=== PATIENT | female | born 1990 | race Caucasian/White ===

== ENCOUNTER → 2017-08-12 | Outpatient (CLI) | payer OTHER ==
[~2017-08-12] MED LIST: AMOXICILLIN500 MG PO; ANAPROX DS550 MG PO; AUGMENTIN 875 M1 TAB PO; CEFTRIAXONE2 G1 IV; CIPRODEX 0.3%-7.5 ML OT; DOXYCYCLINE HY100 M3 PO; HYDROCODONE BIT1 T11 PO; LOMOTIL 0.025 M1 TA1 PO; MACROBID100 M1 PO; MEDROL DOSEPAK4 MG PO; MOTRIN800 MG PO; PYRIDIUM200 M1 PO; TRAMADOL HCL50 MG PO; ZITHROMAX Z PA250 MG PO; ZOFRAN ODT4 MG SL
[2017-08-12 15:34] LABS: BASO % 0.7 % (0.0-1.0); EOS # 0.1 10*3/uL (0.0-0.4); EOS % 1.5 % (1.0-4.0); HEMATOCRIT 33.8 % (37.0-47.0); HEMOGLOBIN 11.3 g/dl (12.0-16.0); LYMPH # 2.1 10*3/uL (1.3-4.4); LYMPH % 35.3 % (27.0-41.0); MEAN CELL VOLUME 89.7 fl (81.0-99.0); MEAN CORPUSCULAR HGB CONC 33.4 g/dl (33.0-37.0); MEAN PLATELET VOLUME 11.5 fl (9.6-12.3); MONO # 0.4 10*3/uL (0.1-1.0); NEUT # 3.3 10*3/uL (2.3-7.9); NEUT % 55.3 % (47.0-73.0); PLATELET COUNT AUTOMATED 225 10*3/uL (130-400); RED BLOOD COUNT 3.77 10*6/uL (4.10-5.10); RED CELL DISTRI WIDTH 13.1 % (0-14.5)
[2017-08-12 16:02] LABS: ALBUMIN 3.8 gm/dl (3.1-4.5); ALKALINE PHOSPHATASE 62 U/L (45-117); BUN 11 mg/dl (7-24); CHLORIDE 105 mmol/L (98-107); CREATININE 0.78 mg/dL (0.55-1.02); POTASSIUM 3.6 mmol/L (3.5-5.1); SGOT/AST 11 IU/L (3-35); SGPT/ALT 16 U/L (12-78); SODIUM 137 mmol/L (136-145); TOTAL PROTEIN 7.3 gm/dL (6.4-8.2)
== END | disposition home or self-care (01) ==
LOC: LAB 15:14
PROVIDERS: Internal Medicine
DX: G25.81 Restless legs syndrome (principal)

== ENCOUNTER 2018-12-21 15:02 | Emergency (ER) | payer SELFPAY ==
[2018-12-21 15:05] VITALS: BP 132/65
== END 2018-12-21 17:10 | disposition home or self-care (01) ==
LOC: ED 15:02
DX: S92.354A Nondisplaced fracture of fifth metatarsal bone, right foot, initial encounter for closed fracture (principal); X58.XXXA Exposure to other specified factors, initial encounter; Y93.89 Activity, other specified; Y92.89 Other specified places as the place of occurrence of the external cause; Y99.8 Other external cause status

== ENCOUNTER → 2019-02-09 | Outpatient (CLI) | payer SELFPAY | END | disposition home or self-care (01) | LOC: ORTHO 01:42 | DX: S92.351D Displaced fracture of fifth metatarsal bone, right foot, subsequent encounter for fracture with routine healing (principal); X58.XXXD Exposure to other specified factors, subsequent encounter ==

== ENCOUNTER → 2019-04-08 | Outpatient (CLI) | payer SELFPAY | END | disposition home or self-care (01) | LOC: ORTHO 00:41 | DX: S92.351D Displaced fracture of fifth metatarsal bone, right foot, subsequent encounter for fracture with routine healing (principal); X58.XXXD Exposure to other specified factors, subsequent encounter ==

== ENCOUNTER → 2019-05-20 | Outpatient (CLI) | payer SELFPAY | END | disposition home or self-care (01) | LOC: ORTHO 00:17 | DX: S92.351D Displaced fracture of fifth metatarsal bone, right foot, subsequent encounter for fracture with routine healing (principal); X58.XXXD Exposure to other specified factors, subsequent encounter ==

== ENCOUNTER 2019-07-04 08:16 | Emergency (ER) | payer SELFPAY ==
[~2019-07-04] VITALS: Wt 54.4 kg
[2019-07-04 08:16] VITALS: BP 111/72
[2019-07-04 08:39] LABS: BILIRUBIN 2+ (NEGATIVE); BLOOD 1+ (NEGATIVE); CLARITY CLOUDY (CLEAR); COLOR YELLOW (YELLOW); GLUCOSE NEGATIVE (NEGATIVE); KETONE 2+ (NEGATIVE); LEUKO ESTERASE NEGATIVE (NEGATIVE); NITRITE NEGATIVE (NEGATIVE); SPECIFIC GRAVITY 1.025 (1.005-1.030)
[2019-07-04 09:06] LABS: BACTERIA 4+; EPITHELIAL CELLS 20-30
[2019-07-04 09:07] LABS: RBC 16-20 rbc/hpf (0-2)
[2019-07-04 09:16] LABS: BASO # 0.1 10*3/uL (0.0-0.1); BASO % 0.7 % (0.0-1.0); EOS # 0.1 10*3/uL (0.0-0.4); EOS % 1.6 % (1.0-4.0); HEMATOCRIT 42.4 % (37.0-47.0); LYMPH # 1.2 10*3/uL (1.3-4.4); LYMPH % 13.1 % (27.0-41.0); MEAN CELL VOLUME 87.6 fl (81.0-99.0); MEAN CORPUSCULAR HGB 28.9 pg (27.0-31.0); MEAN PLATELET VOLUME 11.8 fl (9.6-12.3); MONO # 0.6 10*3/uL (0.1-1.0); MONO % 6.8 % (3.0-9.0); NEUT % 77.5 % (47.0-73.0); PLATELET COUNT AUTOMATED 275 10*3/uL (130-400); RED BLOOD COUNT 4.84 10*6/uL (4.10-5.10); RED CELL DISTRI WIDTH 12.7 % (0-14.5)
[2019-07-04 09:27] LABS: ACT PARTIAL THROMBO TIME 28.7 SECONDS (20.0-32.1)
[2019-07-04 09:31] LABS: ALBUMIN 4.7 gm/dl (3.1-4.5); ALKALINE PHOSPHATASE 78 U/L (45-117); BUN 14 mg/dl (7-24); CHLORIDE 103 mmol/L (98-107); CREATININE 0.83 mg/dL (0.55-1.02); POTASSIUM 3.5 mmol/L (3.5-5.1); SGOT/AST 17 IU/L (3-35); SGPT/ALT 18 U/L (12-78); SODIUM 135 mmol/L (136-145)
[2019-07-04 09:34] LABS: BETA-HCG, QUANT < 1.0 mIU/mL (1-3)
== END 2019-07-04 11:15 | disposition home or self-care (01) ==
LOC: ED 08:16
PROVIDERS: Emergency Medicine
DX: S70.12XA Contusion of left thigh, initial encounter (principal); S70.11XA Contusion of right thigh, initial encounter; R31.9 Hematuria, unspecified; M54.5 Low back pain; F17.200 Nicotine dependence, unspecified, uncomplicated; Z79.2 Long term (current) use of antibiotics; Z79.899 Other long term (current) drug therapy; X58.XXXA Exposure to other specified factors, initial encounter; Y93.89 Activity, other specified; Y92.89 Other specified places as the place of occurrence of the external cause; Y99.8 Other external cause status

== ENCOUNTER 2021-01-14 18:11 | Observation (INO) | payer OTHER ==
[~2021-01-14] VITALS: Ht 154.9 cm; Wt 65.4 kg
[2021-01-14 18:19] VITALS: BP 105/63
[2021-01-14 19:10] LABS: BASO % 0.2 % (0.0-1.0); EOS # 0.2 10*3/uL (0.0-0.4); EOS % 1.6 % (1.0-4.0); HEMATOCRIT 37.3 % (37.0-47.0); LYMPH # 1.5 10*3/uL (1.3-4.4); LYMPH % 11.6 % (27.0-41.0); MEAN CELL VOLUME 87.1 fl (81.0-99.0); MEAN CORPUSCULAR HGB 28.3 pg (27.0-31.0); MEAN CORPUSCULAR HGB CONC 32.4 g/dl (33.0-37.0); MEAN PLATELET VOLUME 11.5 fl (9.6-12.3); MONO # 0.8 10*3/uL (0.1-1.0); MONO % 6.2 % (3.0-9.0); NEUT # 10.3 10*3/uL (2.3-7.9); PLATELET COUNT AUTOMATED 283 10*3/uL (130-400); RED BLOOD COUNT 4.28 10*6/uL (4.10-5.10); RED CELL DISTRI WIDTH 13.1 % (0-14.5); WHITE BLOOD COUNT 12.9 10*3/uL (4.8-10.8)
[2021-01-14 19:26] LABS: ALBUMIN 3.6 gm/dl (3.1-4.5); ALKALINE PHOSPHATASE 87 U/L (45-117); BUN 8 mg/dl (7-24); CHLORIDE 110 mmol/L (98-107); CREATININE 0.67 mg/dL (0.55-1.02); POTASSIUM 3.4 mmol/L (3.5-5.1); SGOT/AST 5 IU/L (3-35); SGPT/ALT 15 U/L (12-78); SODIUM 142 mmol/L (136-145); TOTAL PROTEIN 7.7 gm/dL (6.4-8.2)
[2021-01-14 20:17] VITALS: BP 90/50
[2021-01-14 20:48] LABS: BILIRUBIN Negative (Negative); BLOOD Negative (Negative); CLARITY Cloudy (Clear); COLOR Yellow (Yellow); GLUCOSE Negative (Negative); KETONE Trace (Negative); LEUKO ESTERASE Negative (Negative); NITRITE Negative (Negative); UROBILINOGEN 0.2 E.U./dl (0.0-1.0)
[2021-01-14 20:58] LABS: BACTERIA 3+; MUCOUS 2+; RBC 0-2 rbc/hpf (0-2)
[2021-01-14 22:20] LABS: CLARITY CLEAR; COLOR COLORLESS
[2021-01-14 22:28] LABS: CSF GLUCOSE 65 mg/dL (40-70); CSF TOTAL PROTEIN 24.6 mg/dL (15-45)
[2021-01-14 22:41] LABS: CSF RBC < 1000 /uL; CSF WBC 1 /uL
[2021-01-14 23:20] LABS: CSF LYMPHOCYTES 54 % (40-80); CSF MONOCYTES 46 % (15-45)
[2021-01-15 00:20] VITALS: BP 96/52
[2021-01-15 06:10] LABS: BUN 8 mg/dl (7-24); CHLORIDE 116 mmol/L (98-107); CHOLESTEROL 117 mg/dL (<200); CREATININE 0.82 mg/dL (0.55-1.02); FREE T4 0.94 ng/dl (0.76-1.46); HDL CHOLESTEROL 63 mg/dl (40-60); LDL CHOLESTEROL 48 mg/dL (9-159); POTASSIUM 3.8 mmol/L (3.5-5.1); SODIUM 142 mmol/L (136-145); TRIGLYCERIDES 29 mg/dl (<150); VLDL CHOLESTEROL 6 mg/dL (6-40)
[2021-01-15 06:17] LABS: THYROID STIM HORMONE (HS) 0.637 uIU/ml (0.358-4.75)
[2021-01-15 06:20] LABS: HEMATOCRIT 32.5 % (37.0-47.0); MEAN CELL VOLUME 87.8 fl (81.0-99.0); MEAN CORPUSCULAR HGB 28.4 pg (27.0-31.0); MEAN CORPUSCULAR HGB CONC 32.3 g/dl (33.0-37.0); PLATELET COUNT AUTOMATED 233 10*3/uL (130-400); RED CELL DISTRI WIDTH 13.2 % (0-14.5); WHITE BLOOD COUNT 11.2 10*3/uL (4.8-10.8)
[2021-01-15 07:12] LABS: VITAMIN D, 25-HYDROXY 11.9 ng/mL (30-100)
[2021-01-15 07:39] LABS: BURR CELLS FEW; OVALOCYTES FEW; TOTAL CELLS COUNTED 100 #CELLS
[2021-01-15 07:41] LABS: PLATELET SUFFICIENCY NORMAL (NORMAL); SCHISTOCYTES FEW
[2021-01-15 08:00] VITALS: BP 92/57
[2021-01-15 12:00] VITALS: BP 115/55
[2021-01-15 16:17] VITALS: BP 94/51
[2021-01-15] MEDS ORDERED: VITAMIN D325 MCG PO (17:29)
== END 2021-01-15 18:05 | disposition home or self-care (01) ==
LOC: ED 18:11 → 4E 22:45 → EDHOLD 22:45 → 4E 22:45
PROVIDERS: Internal Medicine; Physician Assistant; ADMIT Family Medicine; ATTEND Family Medicine
DX: R51.9 Headache, unspecified (principal); A41.9 Sepsis, unspecified organism; R29.818 Other symptoms and signs involving the nervous system; E87.6 Hypokalemia; R00.0 Tachycardia, unspecified; D72.829 Elevated white blood cell count, unspecified; R79.82 Elevated C-reactive protein (CRP); E87.8 Other disorders of electrolyte and fluid balance, not elsewhere classified; M54.2 Cervicalgia; R65.10 Systemic inflammatory response syndrome (SIRS) of non-infectious origin without acute organ dysfunction; E86.0 Dehydration; R50.9 Fever, unspecified; R11.2 Nausea with vomiting, unspecified; H53.149 Visual discomfort, unspecified; Z20.822 Contact with and (suspected) exposure to COVID-19; Z98.890 Other specified postprocedural states

== ENCOUNTER 2022-05-02 12:17 | Emergency (ER) | payer SELFPAY ==
[~2022-05-02] VITALS: Ht 165.1 cm; Wt 56.7 kg
[~2022-05-02 12:17] MED LIST changes: +VITAMIN D325 MCG PO
[2022-05-02 12:24] VITALS: BP 108/45
[2022-05-02] MEDS ORDERED: LIDEX 0.05% CRE15 GM T (12:34)
[2022-05-02] MEDS ORDERED: CEPHALEXIN500 M1 PO (12:34)
== END 2022-05-02 12:41 | disposition home or self-care (01) ==
LOC: ED 12:17
DX: S70.361A Insect bite (nonvenomous), right thigh, initial encounter (principal); W57.XXXA Bitten or stung by nonvenomous insect and other nonvenomous arthropods, initial encounter; Y93.89 Activity, other specified; Y92.89 Other specified places as the place of occurrence of the external cause; Y99.8 Other external cause status

== ENCOUNTER 2025-05-13 10:24 | Emergency (ER) | payer OTHER ==
[~2025-05-13] VITALS: Ht 152.4 cm; Wt 56.7 kg
[~2025-05-13 10:24] MED LIST changes: +CEPHALEXIN500 M1 PO; +LIDEX 0.05% CRE15 GM T
[2025-05-13 10:33] VITALS: BP 122/62
[2025-05-13] MEDS ORDERED: Sulfamethoxazole/Trimethopri 1 TAB TAB PO ONE (10:40)
[2025-05-13] MEDS ORDERED: SEPTDS PO (10:41)
== END 2025-05-13 10:41 | disposition home or self-care (01) ==
LOC: ED 10:24
DX: L03.115 Cellulitis of right lower limb (principal); Z79.899 Other long term (current) drug therapy; Z98.890 Other specified postprocedural states